=== PATIENT | male | born 1965 | race Caucasian/White ===

== ENCOUNTER 2019-08-18 17:46 | Outpatient (REF) | payer SELFPAY ==
[2019-08-18 22:09] LABS: HCT 41.1 % (40.0-50.0); HGB 14.4 g/dL (13.5-17.5); Mean Corpuscular Hemoglobin 30.9 pg (27.0-33.0); Mean Corpuscular Volume 88.2 fL (80-95); Mean Platelet Volume 9.7 fL (8.0-11.0); Platelet Count 228 x1000/uL (130-400); RBC 4.66 m/cumm (4.50-6.00); RBC Distribution Width 13.5 % (11.8-14.1); White Blood Cell Count 5.76 k/cumm (4.4-10.8)
[2019-08-18 22:42] LABS: ALT 52 U/L (16-63); AST 28 U/L (15-37); Albumin 3.6 g/dL (3.4-5.0); Alkaline Phosphatase 72 U/L (46-116); Anion Gap 8.6 mmol/L (3-11); BUN 11 mg/dL (7-18); Bilirubin, Total 0.4 mg/dL (0.2-1.0); CO2 29.4 mmol/L (21.0-32.0); CREATININE 0.85 mg/dL (0.70-1.30); Calcium 8.4 mg/dL (8.5-10.1); Calculated LDL 112 mg/dL (<100); Chloride 102 mmol/L (98-107); Cholesterol 206 mg/dL (<200); Glucose 148 mg/dL (74-106); HDL Cholesterol 43 mg/dL (40-60); Potassium 3.7 mmol/L (3.5-5.1); Sodium 140 mmol/L (136-145); TSH (W/Ref FT4) 3.96 uIU/mL (0.36-3.74); Total Protein 6.5 g/dL (6.4-8.2); Triglyceride 255 mg/dL (<150)
[2019-08-18 22:43] LABS: Hemoglobin A1C 5.4 % (3.8-5.6)
[2019-08-18 23:09] LABS: FREE T4 0.94 ng/dL (0.76-1.46); Uric Acid 6.9 mg/dL (3.5-7.2)
== END 2019-08-18 18:06 ==
LOC: NCHCN 17:46
PROVIDERS: PCP Nurse Practitioner Family; Visit Provider Family Medicine
DX: I10 Essential (primary) hypertension (principal); G62.9 Polyneuropathy, unspecified; M10.00 Idiopathic gout, unspecified site; E66.01 Morbid (severe) obesity due to excess calories; Z00.00 Encounter for general adult medical examination without abnormal findings; E88.81 Metabolic syndrome and other insulin resistance; R94.6 Abnormal results of thyroid function studies
CPT/HCPCS: 80053; 80061; 85027; 83036; 84439; 84443; 84550

== ENCOUNTER 2020-04-01 22:21 | Outpatient (REF) | payer BC, SELFPAY ==
[2020-04-03 01:44] LABS: COVID-19 RT-PCR UVMMC Result Negative (Negative)
== END 2020-04-01 22:41 ==
LOC: NCHCN 22:21
PROVIDERS: PCP Nurse Practitioner Family; Visit Provider Family Medicine
DX: Z11.59 Encounter for screening for other viral diseases (principal)
CPT/HCPCS: U0003

== ENCOUNTER 2021-01-21 11:33 | Outpatient (REF) | payer BC, SELFPAY ==
[2021-01-20 21:08] LABS: Hemoglobin A1C 5.7 % (<5.7)
[2021-01-20 21:19] LABS: ALT 69 U/L (16-63); AST 39 U/L (15-37); Alkaline Phosphatase 77 U/L (46-116); Anion Gap 9.9 mmol/L (3-11); BUN 12 mg/dL (7-18); Bilirubin, Total 0.7 mg/dL (0.2-1.0); CO2 29.1 mmol/L (21.0-32.0); CREATININE 0.8 mg/dL (0.70-1.30); Chloride 101 mmol/L (98-107); Glucose 93 mg/dL (74-106); Potassium 3.6 mmol/L (3.5-5.1); Sodium 140 mmol/L (136-145); Total Protein 7.3 g/dL (6.4-8.2)
[2021-01-20 21:37] LABS: FREE T4 0.93 ng/dL (0.76-1.46)
== END 2021-01-21 11:34 | disposition home or self-care (01) ==
LOC: NCHCN 11:33
PROVIDERS: PCP Nurse Practitioner Family; Visit Provider Family Medicine
DX: Z00.00 Encounter for general adult medical examination without abnormal findings (principal); E66.01 Morbid (severe) obesity due to excess calories; R94.6 Abnormal results of thyroid function studies; E88.81 Metabolic syndrome and other insulin resistance; I10 Essential (primary) hypertension
CPT/HCPCS: 80053; 83036; 84439; 84443

== ENCOUNTER 2021-04-05 11:19 | Outpatient (REF) | payer BC, SELFPAY ==
[2021-04-05 14:44] LABS: Hemoglobin A1C 5.6 % (<5.7)
[2021-04-05 14:51] LABS: ALT 41 U/L (16-63); AST 27 U/L (15-37); Albumin 3.7 g/dL (3.4-5.0); Alkaline Phosphatase 78 U/L (46-116); Bilirubin, Direct 0.2 mg/dL (0.0-0.2); Bilirubin, Total 0.5 mg/dL (0.2-1.0); TSH (W/Ref FT4) 1.95 uIU/mL (0.36-3.74); Total Protein 7.3 g/dL (6.4-8.2)
[2021-04-06 10:50] LABS: Vitamin D 25 Total 21.3 ng/mL (30-100)
== END 2021-04-05 11:20 | disposition home or self-care (01) ==
LOC: NCHCN 11:19
PROVIDERS: PCP Nurse Practitioner Family; Visit Provider Family Medicine
DX: E66.01 Morbid (severe) obesity due to excess calories (principal); M79.10 Myalgia, unspecified site; M25.569 Pain in unspecified knee; R74.8 Abnormal levels of other serum enzymes; R73.03 Prediabetes; R94.6 Abnormal results of thyroid function studies
CPT/HCPCS: 80076; 82306; 83036; 84443

== ENCOUNTER 2021-08-09 15:12 | Outpatient (REF) | payer BC, SELFPAY ==
[2021-08-10 15:28] LABS: COVID-19 RT-PCR UVMMC Result Positive (Negative)
== END 2021-08-09 15:13 | disposition home or self-care (01) ==
LOC: NCHCN 15:12
PROVIDERS: PCP Nurse Practitioner Family; Visit Provider Family Medicine
DX: Z20.822 Contact with and (suspected) exposure to COVID-19 (principal); J06.9 Acute upper respiratory infection, unspecified
CPT/HCPCS: U0003

== ENCOUNTER 2023-08-09 08:30 | Outpatient (REF) | payer BC, SELFPAY ==
[2023-08-09 14:43] LABS: ALT 30 U/L (16-63); AST 22 U/L (15-37); Albumin 3.6 g/dL (3.4-5.0); Alkaline Phosphatase 75 U/L (46-116); Anion Gap 5.4 mmol/L (3-11); BUN 12 mg/dL (7-18); Bilirubin, Total 0.6 mg/dL (0.2-1.0); CO2 31.6 mmol/L (21.0-32.0); CREATININE 0.9 mg/dL (0.70-1.30); Calculated LDL 111 mg/dL (<100); Chloride 100 mmol/L (98-107); Cholesterol 174 mg/dL (<200); Glucose 112 mg/dL (74-106); HDL Cholesterol 42 mg/dL (40-60); Potassium 3.7 mmol/L (3.5-5.1); Sodium 137 mmol/L (136-145); Total Protein 7.2 g/dL (6.4-8.2); Triglyceride 109 mg/dL (<150)
[2023-08-09 14:58] LABS: Uric Acid 5.4 mg/dL (3.5-7.2)
== END 2023-08-09 08:31 | disposition home or self-care (01) ==
LOC: NCHCN 08:30
PROVIDERS: PCP Nurse Practitioner Family; Visit Provider Family Medicine
DX: Z00.00 Encounter for general adult medical examination without abnormal findings (principal); I10 Essential (primary) hypertension; E78.5 Hyperlipidemia, unspecified; E03.9 Hypothyroidism, unspecified; R73.03 Prediabetes; E55.9 Vitamin D deficiency, unspecified; M10.9 Gout, unspecified; E66.8 Other obesity
CPT/HCPCS: 80053; 80061; 82306; 83036; 84443; 84550

== ENCOUNTER 2023-08-26 11:21 | Outpatient (REF) | payer BC, SELFPAY ==
[2023-09-01 10:56] LABS: Testosterone, Free 9.99 ng/dL (3.87-14.7); Testosterone, Total 275 ng/dL (240-950)
== END 2023-08-26 11:22 | disposition home or self-care (01) ==
LOC: NCHCN 11:21
PROVIDERS: PCP Nurse Practitioner Family; Visit Provider Family Medicine
DX: E29.1 Testicular hypofunction (principal); Z12.5 Encounter for screening for malignant neoplasm of prostate
CPT/HCPCS: 84153; 84402; 84403

== ENCOUNTER 2025-01-05 15:01 | Outpatient (REF) | payer BC, SELFPAY ==
[2025-01-05 21:38] LABS: Abs Immature Grans 0.04 10^3/uL (0.0-0.06); Absolute Basophil Count 0.05 10^3/uL (0.0-0.2); Absolute Eosinophil Count 0.27 10^3/uL (0.0-0.7); Absolute Lymphocyte Count 0.81 10^3/uL (1.2-3.4); Absolute Monocyte Count 0.47 10^3/uL (0.1-0.8); Absolute Neutrophil Count 5.18 10^3/uL (1.2-6.7); Basophils % 0.7 %; HCT 40.8 % (40.0-50.0); HGB 14.1 g/dL (13.5-17.5); Immature Grans % 0.6 %; Lymphocytes % 11.9 %; MCHC 34.6 % (32.0-36.0); MCV 87 fL (80-95); MPV 9.6 fL (8.0-11.0); Monocytes % 6.9 %; Neutrophils % 75.9 %; Platelet Count 215 10^3/uL (130-400); RDW 13.4 % (11.8-14.1); WBC 6.82 10^3/uL (4.4-10.8)
[2025-01-05 21:50] LABS: Hemoglobin A1C 5.4 % (<5.7)
[2025-01-05 22:20] LABS: ALT 38 U/L (16-63); AST 25 U/L (15-37); Albumin 3.8 g/dL (3.4-5.0); Alkaline Phosphatase 88 U/L (46-116); Anion Gap 5.4 mmol/L (3-11); BUN 14 mg/dL (7-18); Bilirubin, Total 0.4 mg/dL (0.2-1.0); CO2 31.6 mmol/L (21.0-32.0); COMMENT (LAB VIEW ONLY) 57.25 mg/dL; CREATININE 0.9 mg/dL (0.70-1.30); Calcium 8.9 mg/dL (8.5-10.1); Chloride 105 mmol/L (98-107); Estimated GFR 97.78 (mL/min/1.73m2); Glucose 120 mg/dL (74-106); PROTEIN < 6.0 mg/dL; Potassium 3.9 mmol/L (3.5-5.1); Sodium 142 mmol/L (136-145); TSH 2.22 uIU/mL (0.36-3.74); Total Protein 7.4 g/dL (6.4-8.2); Vitamin B12 1112 pg/mL (193-986); Vitamin D 25 Total 32 ng/mL (30-100)
[2025-01-05 22:29] LABS: Uric Acid 5.3 mg/dL (3.5-7.2)
[2025-01-06 19:57] LABS: HIV-1/2 Ag & Ab Screen Negative (Negative)
[2025-01-06 19:59] LABS: Hepatitis C Ab w Rflx HCV PCR Negative (Negative)
[2025-01-07 12:13] LABS: PSA, Screening 0.9 ng/mL (<=4.5)
[2025-01-07 13:01] LABS: Albumin 59.6 % (55.8-66.1); Albumin g/dL 4.1 g/dL (3.6-5.2); Total Protein 6.8 g/dL (6.3-8.2)
[2025-01-07 13:48] LABS: Albumin, Urine % 19.2 %; Albumin, Urine mg/dL 1 mg/dL; Globulins, Urine % 80.8 %; Globulins, Urine mg/dL 4 mg/dL; Immunotyping, Urine (See Note); Total Protein Urine 5 mg/dL (See Note)
== END 2025-01-05 15:02 | disposition home or self-care (01) ==
LOC: NCHCN 15:01
PROVIDERS: PCP Family Medicine; Visit Provider Family Medicine
DX: G62.9 Polyneuropathy, unspecified (principal); R73.03 Prediabetes; M10.00 Idiopathic gout, unspecified site; E55.9 Vitamin D deficiency, unspecified; E03.9 Hypothyroidism, unspecified; F11.10 Opioid abuse, uncomplicated; R53.83 Other fatigue
CPT/HCPCS: 80053; 82306; 84153; 84156; 84166; 86335; 86803; 87389; 82565; 82607; 83036; 84165; 84443; 84550; 85025